=== PATIENT | female | born 1960 | race Caucasian/White ===

== ENCOUNTER 2018-02-13 12:15 | Outpatient (CLI) | payer BC ==
[~2018-02-13] VITALS: Ht 167.6 cm; Wt 90.7 kg
[~2018-02-13 12:15] MED LIST: CLD600T PO; EST.625T PO; HYDR-3583 PO; IRON1TAB94 PO; MULT-974 PO
[2018-02-13] MEDS ORDERED: CALC-140 PO (12:20)
[2018-02-13] MEDS ORDERED: ESTR0.62 PO (12:20)
[2018-02-13] MEDS ORDERED: MULT-974 PO (12:20)
== END 2018-02-13 12:37 | disposition home or self-care (01) ==
LOC: PREOP 12:15
PROVIDERS: ATTEND Surgery
DX: Z01.818 Encounter for other preprocedural examination (principal)

== ENCOUNTER 2018-02-17 07:31 | Day surgery (SDC) | payer BC ==
[~2018-02-17] VITALS: Ht 167.6 cm; Wt 90.7 kg
[~2018-02-17 07:31] MED LIST changes: +CALC-140 PO; +ESTR0.62 PO
--- OUTSIDE RECORDS SUMMARY | 2018-02-17 07:35 | XMS REPORT | Continuity of Care Document ---
Author Author [facility] Organization [facility] Address Unknown Phone Unavailable Care Team Providers Care Open Shank Coverer Name Role Phone VICENTE PROCTOR MD PP Insurance Providers Payer Name Policy Number Subscriber Name Relationship [facility] [id number] Radha Fritz 01 Self / Same As Patient Advance Directives Directive Response Recorded Date Advance Directives N 12/16/12 7:19am Health Care Power of Shovel Engineer N 12/16/12 7:19am Organ Donor N 12/16/12 7:19am Problems No Known Problems or Medical conditions. Family History History Response Recorded Date/Time Hx Family Cancer Y MOM ENDOMETRIAL 10:57am Hx Family Lung Cancer Y DAD 12/10/12 10: 57am Hx Family Colorectal Cancer Y GRANDFATHER PROSTATE 12/10/12 10:57am Hx Family Cardiac Disorders N DAD HAD HEART ISSUES DUE TO CHEMO 12/10/12 10:57am Social History History Response Recorded Date/Time Alcohol Use Denies Use 12/16/12 7:20am Recreational Drug Use N 12/16/12 7:20am Recent Foreign Travel N 12/16/12 7:20am Recent Infectious Disease Exposure N 7:20am Hospitalization with Isolation Denies 6:56am Allergies, Adverse Reactions, Alerts Allergen Type Severity Reaction Last Updated No Known Drug Allergies 12/10/12 Medications Medication Dose Units Route Sig Qty Days Calcium/Vitamin D (Calcarb 600 + D Tablet) 600 Mg PO DAILY Multivitamin (Multi Vitamin Daily) 1 Tab PO DAILY Response Recorded Date/Time Status not known Unknown Results Test Date Result Interp. Ref. Range Basophils # (Auto) December 10, 2012 11:20am 0.0 10^3/uL N 0.0-0.1 Basophils (%) (Auto) December 10, 2012 11:20am 1 % N 0-10 Eosinophils # (Auto) December 10, 2012 11:20am 0.1 10^3/uL N 0.0-0.3 Eosinophils (%) (Auto) December 10, 2012 11:20am 2 % N 0-10 Hematocrit December 10, 2012 11:20am 33 % L 35-52 Hemoglobin December 10, 2012 11:20am 10.6 G/ DL L 11.5-16.0 Lymphocytes # (Auto) December 10, 2012 11:20am 1.7 X 10^3 N 1.0-4.0 Lymphocytes (%) (Auto) December 10, 2012 11:20am 27 % N 12-44 Mean Corpuscular Hemoglobin December 10, 2012 11:20am 24 PG L 25-34 Mean Corpuscular Hemoglobin Concent December 10, 2012 11:20am 32 G/DL N 32-36 Mean Corpuscular Volume December 10, 2012 11:20am 76 FL L 80-99 Mean Platelet Volume December 10, 2012 11:20am 9.7 FL N 7.4-10.4 Monocytes # (Auto) December 10, 2012 11:20am 0.5 X 10^3 N 0.0-1.0 Monocytes (%) (Auto) December 10, 2012 11:20am 9 % N 0-12 Neutrophils # (Auto) December 10, 2012 11:20am 3.8 X 10^3 N 1.8-7.8 Neutrophils (%) (Auto) December 10, 2012 11:20am 62 % N 42-75 Platelet Count December 10, 2012 11:20am 356 10^3/uL N 130-400 Red Blood Count December 10, 2012 11:20am 4.39 10^6/uL N 4.35-5.85 Red Cell Distribution Width December 10, 2012 11:20am 16.4 % H 10.0-14.5 White Blood Count December 10, 2012 11:20am 6.1 10^3/uL N 4.3-11.0 Procedures Procedure Code Date MRSA Screen 12/10/12 Encounters Encounter Location Date/Time Discharged Inpatient [facility] 6:05am
--- OUTSIDE RECORDS SUMMARY | 2018-02-17 07:35 | XMS REPORT | Continuity of Care Document ---
Author Author [facility] Organization [facility] Address Unknown Phone Unavailable Care Team Providers Care Slab Stripper Name Role Phone VICENTE PROCTOR MD PP Insurance Providers Payer Name Policy Number Subscriber Name Relationship [facility] [id number] Radha Fritz 01 Self / Same As Patient Advance Directives Directive Response Recorded Date Advance Directives N 01/13/13 10:35am Health Care Power of Numerical Control Machine Tool Operator N 01/13/13 10:35am Organ Donor N 01/13/13 10:35am Problems No Known Problems or Medical conditions. Family History History Response Recorded Date/Time Hx Family Cancer Y MOM ENDOMETRIAL 11:14am Hx Family Lung Cancer Y DAD 01/13/13 11: 14am Hx Family Colorectal Cancer Y GRANDFATHER PROSTATE 01/13/13 11:14am Hx Family Cardiac Disorders N DAD HAD HEART ISSUES DUE TO CHEMO 01/13/13 11:14am Social History History Response Recorded Date/Time Alcohol Use Denies Use 01/13/13 7:40am Recreational Drug Use N 01/13/13 7:40am Recent Foreign Travel N 01/13/13 7:40am Recent Infectious Disease Exposure N 7:40am Hospitalization with Isolation Denies 2:49pm Allergies, Adverse Reactions, Alerts Allergen Type Severity Reaction Last Updated No Known Drug Allergies 12/10/12 Medications Medication Dose Units Route Sig Qty Days Estrogens Conjugated (Premarin Tab) 0.625 Mg PO DAILY Iron &Iron Asp Gly/Fa/Mv,Min38 (Iron Tablet) 1 Each PO BID Acetaminophen/Hydrocodone Bitart (Lortab 5 Mg) 1 - 2 Ea PO Q4H PRN Calcium/Vitamin D (Calcarb 600 + D Tablet) 600 Mg PO DAILY Multivitamin (Multi Vitamin Daily) 1 Tab PO DAILY Response Recorded Date/Time Status not known Unknown Results Test Date Result Interp. Ref. Range Alanine Aminotransferase (ALT/SGPT) December 16, 2012 6:55am 38 U/L N 30-65 Albumin December 16, 2012 6:55am 3.6 G/DL N 3.4-5.0 Alkaline Phosphatase December 16, 2012 6:55am 96 U/L N 50-136 Aspartate Amino Transf (AST/SGOT) December 16, 2012 6:55am 19 U/L N 15-37 BUN/Creatinine Ratio December 16, 2012 6:55am 13 - Basophils # (Auto) January 08, 2013 9:20am 0.0 10^3/uL N 0.0-0.1 Basophils (%) (Auto) January 08, 2013 9:20am 1 % N 0-10 Blood Urea Nitrogen December 16, 2012 6:55am 12 MG/DL N 7-18 Calcium Level December 16, 2012 6:55am 7.8 MG/DL L 8.5-10.1 Carbon Dioxide Level December 16, 2012 6:55am 26 MMOL/L N 21-32 Chloride Level December 16, 2012 6:55am 101 MMOL/L N 101-110 Creatinine December 16, 2012 6:55am 0.9 MG/ DL N 0.6-1.3 Eosinophils # (Auto) January 08, 2013 9:20am 0.1 10^3/uL N 0.0-0.3 Eosinophils (%) (Auto) January 08, 2013 9:20am 2 % N 0-10 Glucose Level December 16, 2012 6:55am 111 MG/DL H 74-106 Hematocrit January 08, 2013 9:20am 33 % L 35-52 Hemoglobin January 08, 2013 9:20am 10.5 G /DL L 11.5-16.0 Lymphocytes # (Auto) January 08, 2013 9:20am 1.5 X 10^3 N 1.0-4.0 Lymphocytes (%) (Auto) January 08, 2013 9:20am 25 % N 12-44 Mean Corpuscular Hemoglobin January 08, 2013 9:20am 24 PG L 25-34 Mean Corpuscular Hemoglobin Concent January 08, 2013 9:20am 32 G/DL N 32-36 Mean Corpuscular Volume January 08, 2013 9:20am 74 FL L 80-99 Mean Platelet Volume January 08, 2013 9:20am 9.1 FL N 7.4-10.4 Monocytes # (Auto) January 08, 2013 9:20am 0.6 X 10^3 N 0.0-1.0 Monocytes (%) (Auto) January 08, 2013 9:20am 9 % N 0-12 Neutrophils # (Auto) January 08, 2013 9:20am 3.9 X 10^3 N 1.8-7.8 Neutrophils (%) (Auto) January 08, 2013 9:20am 64 % N 42-75 Platelet Count January 08, 2013 9:20am 306 10^3/uL N 130-400 Potassium Level December 16, 2012 6:55am 3.9 MMOL/L N 3.6-5.0 Red Blood Count January 08, 2013 9:20am 4.41 10^6/uL N 4.35-5.85 Red Cell Distribution Width January 08, 2013 9:20am 17.2 % H 10.0-14.5 Sodium Level December 16, 2012 6:55am 135 MMOL/L N 135-145 Total Bilirubin December 16, 2012 6:55am 0.3 MG/DL N 0.0-1.0 Total Protein December 16, 2012 6:55am 7.4 G /DL N 6.4-8.2 Urine Amorphous Sediment December 16, 2012 6:00am LARGE SALO URATES /LPF H - Urine Bacteria December 16, 2012 6:00am MODERATE /HPF H - Urine Bilirubin December 16, 2012 6:00am NEGATIVE - Urine Casts December 16, 2012 6:00am NONE / LPF - Urine Clarity December 16, 2012 6:00am VERY CLOUDY H - Urine Color December 16, 2012 6:00am YELLOW - Urine Crystals December 16, 2012 6:00am NONE /LPF - Urine Culture Indicated December 16, 2012 6:00am YES - Urine Glucose (UA) December 16, 2012 6:00am NEGATIVE - Urine Ketones December 16, 2012 6:00am NEGATIVE - Urine Leukocyte Esterase December 16, 2012 6:00am NEGATIVE - Urine Mucus December 16, 2012 6:00am NEGATIVE /LPF - Urine Nitrite December 16, 2012 6:00am NEGATIVE - Urine Test December 16, 2012 6:00am NEGATIVE - Urine Protein December 16, 2012 6:00am 1+ H - Urine RBC December 16, 2012 6:00am NONE / HPF - Urine Specific [place] December 16, 2012 6:00am 1.020 - Urine Squamous Epithelial Cells December 16, 2012 6:00am 5-10 /HPF - Urine Urobilinogen December 16, 2012 6:00am NORMAL MG/DL - Urine WBC December 16, 2012 6:00am 5-10 / HPF H - Urine pH December 16, 2012 6:00am 6 - White Blood Count January 08, 2013 9:20am 6.0 10^3/uL N 4.3-11.0 Urine RBC (Auto) December 16, 2012 6:00am 1+ H - Procedures Procedure Code Date MRSA Screen 01/08/13 Urine Culture 12/16/12 Encounters Encounter Location Date/Time Discharged Inpatient [facility] 6:05am
--- OUTSIDE RECORDS SUMMARY | 2018-02-17 07:35 | XMS REPORT | Continuity of Care Document ---
Author Author [facility] Organization [facility] Address Unknown Phone Unavailable Allergies Active Description Code Type Severity Reaction Onset Reported/Identified Relationship to Patient Clinical Status Yes No Known Drug Allergies [id number] Drug Allergy Unknown N/A 12/10/2012 Medications There is no data. Problems Date Dx Coded Attending Type Code Diagnosis Diagnosed By 07/25/2015 CAROL PARHAM, YRN Mcneil Ot K57.90 07/25/2015 YRN MEDINA MD Ot K63.5 02/11/2018 YRN MEDINA MD Ot Z01.818 ENCOUNTER FOR OTHER PREPROCEDURAL EXAMIN 02/13/2018 YRN MEDINA MD Ot Z01.818 ENCOUNTER FOR OTHER PREPROCEDURAL EXAMIN 02/13/2018 YRN MEDINA MD Ot Z01.818 ENCOUNTER FOR OTHER PREPROCEDURAL EXAMIN Procedures There is no data. Results There is no data. Encounters ACCT No. Visit Date/Time Discharge Status Pt. Type Provider Facility Loc./Unit Complaint [id number] 02/10/2018 05:37:00 02/10/2018 23:59:59 CLS Outpatient YRN MEDINA MD [facility] PREOP COLONOSCOPY [id number] 07/25/2015 09:26:00 07/25/2015 13:10:00 DIS Outpatient YRN MEDINA MD [facility] SDC [id number] 07/21/2015 08:26:00 07/21/2015 23:59:59 CLS Outpatient YRN MEDINA MD [facility] PREOP [id number] 01/13/2013 06:05:00 01/16/2013 13:40:00 DIS Inpatient [id number] 01/08/2013 08:53:00 01/08/2013 23:59:59 CLS Outpatient [id number] 12/16/2012 06:05:00 12/16/2012 08:15:00 DIS Inpatient [id number] 12/10/2012 10:39:00 12/10/2012 23:59:59 CLS Outpatient [id number] 02/17/2018 07:30:00 PEN Preadmit CAROL PARHAM, YRN [facility] POLYPS [id number] 05/24/2017 12:13:00 05/24/2017 23:59:00 DIS Outpatient RACHEL ALVARENGA [id number] 05/15/2016 13:09:00 05/15/2016 23:59:00 DIS Outpatient RACHEL ALVARENGA
[2018-02-17] MEDS ORDERED: NS IV 500 ML 500 ML IV PRN (07:57)
[2018-02-17] MEDS ORDERED: fentaNYL INJECTION 100 MCG/2 ML AMP IVP ONE (08:00)
[2018-02-17] MEDS ORDERED: MIDAZOLAM 2 MG/2 ML (VERSED) VIAL IVP ONE (08:00)
[2018-02-17 08:07] VITALS: BP 136/66
[2018-02-17] MEDS ORDERED: fentaNYL INJECTION 100 MCG/2 ML AMP ONE (08:30)
[2018-02-17] MEDS ORDERED: MIDAZOLAM 2 MG/2 ML (VERSED) VIAL ONE ×4 (08:30)
[2018-02-17] MEDS ORDERED: ONDANSETRON 4 MG/2 ML (SDV) Z0FRAN ONE (08:36)
--- NOTE | 2018-02-17 08:43 | History & Physicial ---
History of Present Illness History of Present Illness Reason for visit/HPI to undergo surveillance colonoscopy. Adenomatous polyp excised in 2016. Date of Admission 02/17/18 Date Seen by Provider: Feb 17, 2018 Time Seen by Provider: 08:25 I consulted on this patient on 02/17/18 08:41 Attending Physician Yrn Medina MD Admitting Physician Shama Nicholson MD Consult Allergies and Home Medications Allergies Coded Allergies: No Known Drug Allergies (Unverified , 12/10/12) Home Medications Calcium Carbonate/Vitamin D3 1 Each Tablet, 1 EACH PO DAILY, (Reported) Estrogens, Conjugated 0.625 Mg Tablet, 0.625 MG PO DAILY, (Reported) Multivitamin 1 Each Tablet, 1 EACH PO DAILY, (Reported) Patient Home Medication List Home Medication List Reviewed: Yes Past Szzmbzq-Cwbznk-Xmqgdo Hx Patient Social History Marrital Status: Employed/Student: employed Alcohol Use: Denies Use Recreational Drug Use: No Smoking Status: Never a Smoker Recent Foreign Travel: No Contact w/other who traveled: No Recent Hopitalizations: No Recent Infectious Disease Expo: No Immunizations Up To Date Tetanus Booster (TDap): More than 5yrs Date of Influenza Vaccine: Mar 14, 2015 Seasonal Allergies Seasonal Allergies: No Surgeries Yes Hysterectomy Respiratory Currently Using CPAP: No Currently Using BIPAP: No Reproductive System Hx Reproductive Disorders: Yes Sexually Transmitted Disease: No HIV/AIDS: No Female Reproductive Disorders: Denies KNOWLEDGE MANAGER History: Hysterectomy Musculoskeletal Gout HEENT Loss of Vision: Denies Hearing Impairment: Denies Review of Systems Constitutional: no symptoms reported EENTM: no symptoms reported Respiratory: no symptoms reported Cardiovascular: no symptoms reported Genitourinary: no symptoms reported Musculoskeletal: no symptoms reported Skin: no symptoms reported Psychiatric/Neurological: No Symptoms Reported Physical Exam Vital Signs Vital Signs - First Documented 02/17/18 08:07 Temp 97.9 Pulse 63 Resp 18 B/P (MAP) 136/66 (89) Pulse Ox 98 O2 Delivery Room Air Capillary Refill : Height, Weight, BMI Height: 5'6.00" Weight: 200lbs. 0.0oz. 90.900222ab; 32.3 BMI Method: General Appearance: No Apparent Distress Neck: Normal Inspection Respiratory: Lungs Clear Cardiovascular: Regular Rate, Rhythm Gastrointestinal: Non Tender, Soft Rectal: Deferred Extremity: Normal Inspection Neurologic/Psychiatric: Alert, Oriented x3 Skin: Warm/Dry Assessment/Plan Assessment and Plan lady with a personal history of adenomatous polyps. For surveillance colonoscopy. Admission Diagnosis Admission Status: Other (Outpt Proc) YRN MEDINA MD Feb 17, 2018 08:43
--- NOTE | 2018-02-17 08:43 | Conscious Sedation/ASA ---
Conscious Sedation Pre-Proced Time Reviewed: 08:43 ASA Class: 1 Airway Mallampati Classification: ([place] appropriate class) I. II. III, IV Lungs Heart ASA score ASA 1: a normal healthy patient ASA 2: a patient with a mild systemic disease (mid diabetes, controlled hypertension, obesity ASA 3: a patient with a severe systemic disease that limits activity (angina , COPD, prior Myocardial infarction) ASA 4: a patient with an incapacitating disease that is a constant threat to life (CHF, renal failure) ASA 5: a moribund patient not expected to survive 24 hrs. (ruptured aneurysm) ASA 6: a declared brain patient whose organs are being harvested. For emergent operations, add the letter E after the classification Grade 1 Sedation Plan: Discussed options with patient/fam Note The patient is an appropriate candidate to undergo the planned procedure, sedation, and anesthesia. The patient immediately re-assessed prior to indication. YRN MEDINA MD Feb 17, 2018 08:43
[2018-02-17] MEDS ORDERED: ONDANSETRON 4 MG/2 ML (SDV) Z0FRAN IVP ONE (08:45)
--- NOTE | 2018-02-17 09:06 | Endo Procedure Record ---
Endo Procedure Report Date of Procedure Last Colonoscopy: Yes Feb 17, 2018 Surgeon (s) YRN MEDINA MD Post Procedure/Op Diagnosis sigmoid diverticulosis Procedure Performed colonoscopy to cecum Description of Procedure Anesthesia Type: Conscious Sedation Specimen(s) collected/removed None Description of the Procedure indication for the procedure: This lady was found to have an adenomatous polyps in 2016. She came in for surveillance colonoscopy. Informed consent was obtained after reviewing the procedure in detail. Description of procedure: She was placed in left lateral rectus position and her vital signs were monitored. Conscious sedation was achieved using Versed and fentanyl. Digital rectal examination was unremarkable. The colonoscope was then introduced in the rectum and advanced all the way up to the cecum. The quality of bowel preparation was excellent. The scope was then withdrawn slowly and the mucosa examined in a systematic fashion. Findings: Sigmoid diverticulosis. She tolerated the procedure well and was taken back to the nursing area in a stable condition. Impression: Polyp surveillance. No recurrence. Recommend repeating in 5 years. Copy Copies To 1: VICENTE PROCTOR MD, XAVIER M MD Feb 17, 2018 09:06
--- NOTE | 2018-02-17 09:07 | Discharge Inst-Simple/Standard ---
Discharge Inst-Standard Discharge Medications New, Converted or Re-Newed RX: Other Patient Instructions/Follow Up Plan of Care/Instructions/FU: repeat colonoscopy in 5 years Activity as Tolerated: Yes Discharge Diet: No Restrictions YRN MEDINA MD Feb 17, 2018 09:07
[2018-02-17 09:20] VITALS: BP 118/60
[2018-02-17 09:50] VITALS: BP 136/73
[2018-02-17 10:23] VITALS: BP 136/73
== END 2018-02-17 10:20 | disposition home or self-care (01) ==
LOC: ENDO 07:31
PROVIDERS: ATTEND Surgery
DX: Z09 Encounter for follow-up examination after completed treatment for conditions other than malignant neoplasm (principal); K57.30 Diverticulosis of large intestine without perforation or abscess without bleeding; Z86.010 Personal history of colon polyps